=== PATIENT | female | born 1970 | race Caucasian/White ===

== ENCOUNTER → 2019-01-17 | Outpatient (CLI) | payer OTHER ==
[~2019-01-17] MED LIST: ALPRAZOLAM 0.0.25 M1 PO; CYMBALTA60 MG PO; DUONEB 2.5-0.5 M3 ML INH; EFFEXOR XR75 MG PO; FISH OIL 1,0001 EAC7 PO; LAXATIVE5 M1 PO; MEDROLDOSEPACK PO; MULTIVITAMINS1 EAC7 PO; NEURONTIN800 MG PO; NORCO 7.5-3251 EACH PO; PROAIR HFA8.5 GM IH; PROMETH-CODEIN 65 ML PO; TEGRETOL XR200 MG PO; TRAZODONE 150150 M1 PO; VITAMIN D1000 UNI1 PO; ZOLOFT 50 MG TA50 M1 PO; ZPAK PO
== END ==
LOC: M.RAD 14:00
DX: Z12.31 Encounter for screening mammogram for malignant neoplasm of breast (principal); M54.6 Pain in thoracic spine; M19.011 Primary osteoarthritis, right shoulder; M47.816 Spondylosis without myelopathy or radiculopathy, lumbar region